=== PATIENT | female | born 1950 | race Caucasian/White ===

== ENCOUNTER → 2016-11-18 | Outpatient (CLI) | payer MEDICARE ==
[2016-11-18 17:24] LABS: Basophils % (A) 1 %; CH 30.7; CHCM 33.3; Eosinophils # (A) 0.1 k/uL (0-0.7); Eosinophils % (A) 1 %; HCT 41.8 % (34.0-46.0); HDW 2.53; HGB 14.2 gm/dL (11.4-16.0); Luc # (Auto) 0.21; Luc % (Auto) 3; Lymphocytes # (A) 1.9 k/uL (1.0-4.8); Lymphocytes % (A) 24 %; MCH 31.5 pg (25.0-35.0); MCV 92.7 fL (80.0-100.0); Monocytes # (A) 0.5 k/uL (0-1.0); Monocytes % (A) 6 %; Neutrophils # (A) 5.3 k/uL (1.3-7.7); Neutrophils % (A) 65 %; RBC 4.51 m/uL (3.80-5.40); RDW 13.6 % (11.5-15.5); WBC (Perox) 8.66
[2016-11-18 17:37] LABS: Appearance,Urine Clear (Clear); Bacteria,Urine Rare /hpf; Bilirubin,Urine Negative (Negative); Glucose,Urine (UA) Negative (Negative); Ketones,Urine Negative (Negative); Leukocyte Esterase,Urine Trace (Negative); Nitrite,Urine Negative (Negative); PH, Urine 6.5 (5.0-8.0); Particle Count 453; Protein,Urine Negative (Negative); RBC,Urine 1 /hpf (0-5); Specific Gravity,Urine 1.005 (1.001-1.035); Squamous Epithelial Cell,Urine 1 /hpf (0-4); UA Billing (MACRO vs. MICRO) MICRO; Urobilinogen,Urine <2.0 mg/dL (<2.0); WBC,Urine 2 /hpf (0-5)
[2016-11-18 18:00] LABS: Anion Gap 9 mmol/L; Blood Urea Nitrogen 15 mg/dL (7-17); Calcium 8.9 mg/dL (8.4-10.2); Carbon Dioxide 29 mmol/L (22-30); Chloride 102 mmol/L (98-107); Glucose 87 mg/dL (74-99); Iron 47 ug/dL (37-170); Magnesium 2.1 mg/dL (1.6-2.3); Non-African American GFR(MDRD) >60 (>60 ml/min/1.73 sqM); Phosphorous 4.1 mg/dL (2.5-4.5); Sodium 140 mmol/L (137-145); Uric Acid 2.9 mg/dL (3.7-7.4)
[2016-11-18 18:08] LABS: Total Iron Binding Capacity 270 ug/dL (265-497)
== END | disposition home or self-care (01) ==
LOC: LABWHC1 16:33
PROVIDERS: ATTEND Internal Medicine Nephrology
DX: E55.9 Vitamin D deficiency, unspecified (principal); M10.9 Gout, unspecified; N25.81 Secondary hyperparathyroidism of renal origin; D50.9 Iron deficiency anemia, unspecified; N18.2 Chronic kidney disease, stage 2 (mild)
CPT/HCPCS: 36415; 80048; 81001; 82306; 82728; 83540; 83550; 83735; 83970; 84100; 84550; 85025

== ENCOUNTER → 2017-03-17 | Outpatient (CLI) | payer MEDICARE ==
--- NOTE | 2017-03-18 11:15 | MM ---
Reason for exam: screening (asymptomatic). Last mammogram was performed 1 year and 1 month ago. History: Patient is postmenopausal and has history of other cancer at age 49. Took estrogen for 10 years 5 months. Took progesterone for 10 years 2 months. Physical Findings: A clinical breast exam by your physician is recommended on an annual basis and results should be correlated with mammographic findings. MG 3D Screening Mammo W/Cad Bilateral CC and MLO view(s) were taken. Prior study comparison: February 18, 2016, bilateral MG 3d screening mammo w/cad. February 11, 2015, bilateral MG screening mammo w CAD. There are scattered fibroglandular densities. There is no discrete abnormality. No significant changes when compared with prior studies. ASSESSMENT: Negative, BI-RAD 1 RECOMMENDATION: Routine screening mammogram of both breasts in 1 year.
== END | disposition home or self-care (01) ==
LOC: RADMAMWWP 11:39
PROVIDERS: ATTEND Obstetrics & Gynecology
DX: Z12.31 Encounter for screening mammogram for malignant neoplasm of breast (principal)
CPT/HCPCS: 77063; 77067

== ENCOUNTER → 2018-03-29 | Outpatient (CLI) | payer MEDICARE ==
[2018-03-29 09:32] VITALS: BP 115/82; PULSE 73; TEMP 97.8; BMI 28.1
--- NOTE | 2018-03-29 10:13 | P.HPOB ---
History of Present Illness H&P Date: 03/29/18 Chief Complaint: The patient is here for her routine gynecologic exam and mammogram. This is a 67-year-old G5 PIII with an LMP of 1999 who is status post vaginal hysterectomy for benign reasons. The patient is without gynecologic complaints. Review of Systems She is lost 14 pounds over the last year and she has done this through [employer]. She denies respiratory, cardiac and G.I. problems. She denies maltreatment or problems with falling. : she denies any significant problems with urinary leakage. Past Medical History Past Medical History: Cancer (Basal cell skin cancer and thyroid cancer), GERD/ Reflux, Hypertension, Thyroid Disorder (Hypothyroid) Additional Past Medical History / Comment(s): Meniere disease,IBS, seasonal allergies, osteopenia. 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 Vaginal hysterectomy was done for benign reasons. History of Any Multi-Drug Resistant Organisms: None Reported Past Surgical History: Hysterectomy (Vaginal hysterectomy with anterior repair 2011) Additional Past Surgical History / Comment(s): THYROIDECTOMY,BLADDER SUSPENSION , jaw surgery. Colonoscopy 2015(3rd-next 5-6yrs) Past Psychological History: No Psychological Hx Reported Smoking Status: Never smoker Past Alcohol Use History: Occasional (0 to 3 per week) Past Drug Use History: None Reported Additional History: She is been since 1971 and is retired. She is not sexually active. - Past Family History Sister(s) Family Medical History: Cancer (Melanoma) Father Family Medical History: Cancer (Prostate cancer), Diabetes Mellitus Mother Family Medical History: Coronary Artery Disease (CAD), Diabetes Mellitus Medications and Allergies Home Medications Medication Instructions Recorded Confirmed Type Biotin 10,000 mcg PO DAILY 03/29/18 03/29/18 History Calcium Carb/Vitamin D3/Vit K1 1 each PO DAILY 03/29/18 03/29/18 History [Citracal Soft Chew] Cholecalciferol [Vitamin D3] 1,000 tab PO DAILY 03/29/18 03/29/18 History Dicyclomine [Bentyl] 10 mg PO BID 03/29/18 03/29/18 History Ferrous Sulfate [Iron] 325 mg PO DAILY 03/29/18 03/29/18 History Fexofenadine HCl [Mala Allergy] 180 mg PO DAILY 03/29/18 03/29/18 History Fluticasone Nasal [place] [Flonase 50 mcg INHALATION DAILY 03/29/18 03/29/18 History Nasal [place]] L.acidoph,Paracasei, B.lactis 250 mg PO DAILY 03/29/18 03/29/18 History [Probiotic] Levothyroxine Sodium [Synthroid] 112 mcg PO DAILY 03/29/18 03/29/18 History Losartan [Cozaar] 25 mg PO DAILY 03/29/18 03/29/18 History Montelukast [Singulair] 10 mg PO DAILY 03/29/18 03/29/18 History Allergies Allergy/AdvReac Type Severity Reaction Status Date / Time No Known Allergies Allergy Unverified 03/29/18 09:25 Exam Vital Signs Temp Pulse BP 03/29/18 09:25 97.8 F 73 115/82 Intake and Output 03/28/18 03/29/18 03/29/18 22:59 06:59 14:59 Other: Weight 72.121 kg Height 5'3", weight 159 pounds, BMI 28.2. This is a well-developed well-nourished white female who is alert and oriented times 3 in no acute distress. HEENT: Within normal limits. NECK: Supple without mass or thyromegaly. CHEST AND LUNGS: Clear to auscultation. HEART: Regular rate and rhythm. BREASTS: Are without mass or discharge. AXILLARY EXAM: Negative for adenopathy. BACK: Negative for CVA tenderness. ABDOMEN: Soft, nontender, without palpable masses. PELVIC EXAM: External genitalia appears normal with mild to moderate atrophy. Vagina reveals moderate atrophy without lesions. The vagina is somewhat shortened and narrow which is consistent with her previous exam. The vaginal length is approximately 7-8 cm and the distal vagina accommodates one finger. There is no evidence of prolapse. Bimanual examination is negative for mass or tenderness. RECTAL EXAM: Rectovaginal exam is negative for mass or tenderness and is negative for occult blood. EXTREMITIES: Nontender. IMPRESSION: 1. 67-year-old menopausal female status post vaginal hysterectomy for benign reasons. 2. Moderate vaginal atrophy with vaginal shortening and narrowing of the vagina , otherwise unremarkable gynecologic exam. 3. History of osteopenia PLAN: 1. Pap smears have been discontinued. 2. Self breast awareness was discussed with the patient. 3. Screening mammogram will be done today. 4. Osteoporosis prevention was discussed. I have stressed the importance of adequate calcium, vitamin D and regular exercise. Recommended amounts of calcium and vitamin D were also discussed. Bone density testing will be done through Dr. Sahu as she has done in the past. 5. She did receive for flu shot this past fall. 6. She will return in one year.
--- NOTE | 2018-04-01 12:31 | MM ---
Reason for exam: screening (asymptomatic). Last mammogram was performed 1 year ago. History: Patient is postmenopausal and has history of other cancer at age 49. (thyroid and skin) Took estrogen for 10 years 5 months. Took progesterone for 10 years 2 months. MG 3D Screening Mammo W/Cad Bilateral CC and MLO view(s) were taken. Prior study comparison: March 17, 2017, bilateral MG 3d screening mammo w/cad. February 18, 2016, bilateral MG 3d screening mammo w/cad. There are scattered fibroglandular densities. Chronic nodularity in the right breast. Medial dermal calcification are unchanged. No significant changes when compared with prior studies. ASSESSMENT: Negative, BI-RAD 1 RECOMMENDATION: Routine screening mammogram of both breasts in 1 year.
== END ==
LOC: WWCWWP 08:52
PROVIDERS: ATTEND Obstetrics & Gynecology
DX: Z12.31 Encounter for screening mammogram for malignant neoplasm of breast (principal)
CPT/HCPCS: 77063; 77067

== ENCOUNTER → 2019-01-19 | Outpatient (CLI) | payer MEDICARE ==
--- NOTE | 2019-01-19 09:26 | US ---
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 abn labs, no symptoms EXAM MEASUREMENTS: Right Kidney: 8.9 x 4.4 x 4.1 cm Left Kidney: 9.4 x 4.6 x 5.0 cm Right Kidney: No hydronephrosis or masses seen Left Kidney: No hydronephrosis or masses seen Bladder: wnl Bilateral Jets seen: No There is no evidence for hydronephrosis at this point in time. No nephrolithiasis is seen. No mary s are identified. The urinary bladder is anechoic. Bilateral ureteral jets are seen. IMPRESSION: No hydronephrosis or nephrolithiasis. No current sonographic sequela of chronic medical r enal disease.
== END ==
LOC: RADUSWWP 08:22
PROVIDERS: ATTEND Internal Medicine Nephrology
DX: N18.2 Chronic kidney disease, stage 2 (mild) (principal)
CPT/HCPCS: 76770

== ENCOUNTER → 2019-05-16 | Outpatient (CLI) | payer MEDICARE ==
[2019-05-16 11:32] VITALS: BP 144/80; PULSE 74; RESP 18; TEMP 97.9
--- NOTE | 2019-05-16 12:07 | P.HPOB ---
History of Present Illness H&P Date: 05/16/19 Chief Complaint: The patient is here for her routine gynecologic exam and ma mmogram. This is a 68-year-old with an LMP of 1999. She is status post vaginal hysterectomy for benign reasons and is without gynecologic complaints. Review of Systems She is gained about 6 pounds over the last year. She denies respiratory or cardiac problems. GI: Occasional IBS symptoms. She denies maltreatment or problems with falling. : she denies any significant problems with urinary leakage. Past Medical History Past Medical History: Cancer, GERD/Reflux, Hypertension, Thyroid Disorder Additional Past Medical History / Comment(s): Basal cell skin cancer and thyroid cancer. Meniere disease,IBS, seasonal allergies, osteopenia. 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 Vaginal hysterectomy was done for benign reasons. History of Any Multi-Drug Resistant Organisms: None Reported Past Surgical History: Hysterectomy Additional Past Surgical History / Comment(s): THYROIDECTOMY, vaginal hysterectomy with anterior repair 2011, jaw surgery. Colonoscopy 2015(3rd-next 5-6yrs) Past Psychological History: No Psychological Hx Reported Smoking Status: Never smoker Past Alcohol Use History: Occasional (0-3 per week) Past Drug Use History: None Reported Additional History: She has been masses 1971 and is retired. She is not sexually active. - Past Family History Sister(s) Family Medical History: Cancer Additional Family Medical History / Comment(s): Melanoma skin cancer. Father Family Medical History: Cancer, Diabetes Mellitus Additional Family Medical History / Comment(s): Prostate cancer. Mother Family Medical History: Coronary Artery Disease (CAD), Diabetes Mellitus Medications and Allergies Home Medications Medication Instructions Recorded Confirmed Type Biotin 10,000 mcg PO DAILY 03/29/18 05/16/19 History Calcium Carb/Vitamin D3/Vit K1 1 each PO DAILY 03/29/18 05/16/19 History [Citracal Soft Chew] Cholecalciferol [Vitamin D3] 1,000 tab PO DAILY 03/29/18 05/16/19 History Dicyclomine [Bentyl] 10 mg PO BID 03/29/18 05/16/19 History Ferrous Sulfate [Iron] 325 mg PO DAILY 03/29/18 05/16/19 History Fexofenadine HCl [Mala Allergy] 180 mg PO DAILY 03/29/18 05/16/19 History Fluticasone Nasal [place] [Flonase 50 mcg INHALATION DAILY 03/29/18 05/16/19 History Nasal [place]] L.acidoph,Paracasei, B.lactis 250 mg PO DAILY 03/29/18 05/16/19 History [Probiotic] Levothyroxine Sodium [Synthroid] 112 mcg PO DAILY 03/29/18 05/16/19 History Losartan [Cozaar] 25 mg PO DAILY 03/29/18 05/16/19 History Montelukast [Singulair] 10 mg PO DAILY 03/29/18 05/16/19 History Elderberry Fruit and Flower [Black 1 each PO DAILY 05/16/19 05/16/19 History Elderberry 575 mg Cap] Methylcellulose (with Sugar) 2 gm PO DIRECTED 05/16/19 05/16/19 History [Citrucel Powder] Timolol [Betimol 0.5% Ophth Soln] 1 drop BOTH EYES DAILY 05/16/19 05/16/19 History Allergies Allergy/AdvReac Type Severity Reaction Status Date / Time No Known Allergies Allergy Unverified 05/16/19 11:36 Exam Vital Signs Temp Pulse Resp BP 05/16/19 11:26 97.9 F 74 18 144/80 Intake and Output 05/15/19 05/16/19 05/16/19 22:59 06:59 14:59 Other: Weight 74.843 kg Height 5 feet 3 inches, weight 165 pounds, BMI 29.2. This is a well-developed well-nourished white female who is alert and oriented times 3 in no acute distress. HEENT: Within normal limits. NECK: Supple without mass or thyromegaly. CHEST AND LUNGS: Clear to auscultation. HEART: Regular rate and rhythm. BREASTS: Are without mass or discharge. AXILLARY EXAM: Negative for adenopathy. BACK: Negative for CVA tenderness. ABDOMEN: Soft, nontender, without palpable masses. She has multiple benign- appearing moles. There is a skin lesion in the right upper quadrant of the abdomen measuring 12 x 12 mm with an irregular border and is minimally raised. PELVIC EXAM: External genitalia appears normal with mild to moderate atrophy. Vagina has moderate atrophy without lesions. The vagina is somewhat shortened and narrow consistent with her previous examination the vaginal length is approximately 8 cm and the distal vagina accommodates one finger. There is no evidence of prolapse. Bimanual examination is negative for mass or tenderness. RECTAL EXAM: Rectovaginal exam is negative for mass or tenderness and is negative for occult blood. EXTREMITIES: Nontender. IMPRESSION: 1. 68-year-old menopausal female status post vaginal hysterectomy for benign reasons. 2. moderate vaginal atrophy with vaginal shortening and narrowing of the vagina secondary to her previous vaginal surgery and menopausal atrophy. 3 history of osteopenia followed by her rebeamer. 4. Suspicious right abdominal skin lesion. Plan: 1. Pap smears have been discontinued. 2.Self breast awareness was discussed with the patient. 3. Screening mammogram will be done today. 4. Osteoporosis prevention was discussed. I have stressed the importance of adequate calcium, vitamin D and regular exercise. Recommended amounts of calcium and vitamin D were also discussed. 5. She did get a flu shot this past fall. 6. I have recommended that she see her database coordinator regarding the abdominal skin lesion. She states she has an upcoming appointment with her database coordinator, Dr. Velasquez, and we'll have him inspect this skin lesion and do a whole body skin examination. 7. The patient was advised to return in 1-2 years for her well woman examination.
--- NOTE | 2019-05-18 13:27 | MM ---
Reason for exam: screening (asymptomatic). Last mammogram was performed 1 year and 2 months ago. History: Patient is postmenopausal and has history of other cancer at age 49. Took estrogen for 10 years 5 months. Took progesterone for 10 years 2 months. Physical Findings: A clinical breast exam by your physician is recommended on an annual basis and results should be correlated with mammographic findings. MG 3D Screening Mammo W/Cad Bilateral CC and MLO view(s) were taken. Prior study comparison: March 29, 2018, bilateral MG 3d screening mammo w/cad. March 17, 2017, bilateral MG 3d screening mammo w/cad. There are scattered fibroglandular densities. There is chronic nodularity in the right breast. Stable medial dermal calcifications. No significant changes when compared with prior studies. ASSESSMENT: Negative, BI-RAD 1 RECOMMENDATION: Routine screening mammogram of both breasts in 1 year.
== END | disposition home or self-care (01) ==
LOC: WWCWWP 11:18
PROVIDERS: ATTEND Obstetrics & Gynecology
DX: Z12.31 Encounter for screening mammogram for malignant neoplasm of breast (principal)
CPT/HCPCS: 77063; 77067

== ENCOUNTER → 2020-07-08 | Outpatient (CLI) | payer MEDICARE ==
[2020-07-08 12:59] VITALS: BP 150/95; PULSE 77; RESP 18; TEMP 98.3
--- NOTE | 2020-07-08 13:26 | P.HPOB ---
History of Present Illness H&P Date: 07/08/20 Chief Complaint: The patient is here for her routine gynecologic exam and ma mmogram. This is a 69-year-old with an LMP of 1999. The patient is without gynecologic complaints. She is status post vaginal hysterectomy for benign reasons. Review of Systems She is getting about 11 pounds over the past year. She denies respiratory or cardiac problems. GI: Occasional IBS symptoms especially with increased stress. Past Medical History Past Medical History: Cancer, GERD/Reflux, Hypertension, Thyroid Disorder Additional Past Medical History / Comment(s): Basal cell skin cancer and thyroid cancer. Meniere disease,IBS, seasonal allergies, osteopenia. 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 Vaginal hysterectomy was done for benign reasons. History of Any Multi-Drug Resistant Organisms: None Reported Past Surgical History: Hysterectomy Additional Past Surgical History / Comment(s): THYROIDECTOMY, vaginal hysterectomy with anterior repair 2011, jaw surgery. Colonoscopy 2015(3rd-next 5-6yrs) Past Psychological History: No Psychological Hx Reported Smoking Status: Never smoker Past Alcohol Use History: Occasional (0-3 drinks per week.) Past Drug Use History: None Reported Additional History: She has been since 1971 and is retired. She is not sexually active. - Past Family History Sister(s) Family Medical History: Cancer Additional Family Medical History / Comment(s): Melanoma skin cancer. Father Family Medical History: Cancer, Diabetes Mellitus Additional Family Medical History / Comment(s): Prostate cancer. Mother Family Medical History: Coronary Artery Disease (CAD), Diabetes Mellitus Medications and Allergies Home Medications Medication Instructions Recorded Confirmed Type Biotin 10,000 mcg PO DAILY 03/29/18 07/08/20 History Calcium Carb/Vitamin D3/Vit K1 1 each PO DAILY 03/29/18 07/08/20 History [Citracal Soft Chew] Cholecalciferol [Vitamin D3] 1,000 tab PO DAILY 03/29/18 07/08/20 History Dicyclomine [Bentyl] 10 mg PO BID 03/29/18 07/08/20 History Ferrous Sulfate [Iron] 325 mg PO DAILY 03/29/18 07/08/20 History Fexofenadine HCl [Mala Allergy] 180 mg PO DAILY 03/29/18 07/08/20 History Fluticasone Nasal [place] [Flonase 50 mcg INHALATION DAILY 03/29/18 07/08/20 History Nasal [place]] Levothyroxine Sodium [Synthroid] 112 mcg PO DAILY 03/29/18 07/08/20 History Losartan [Cozaar] 50 mg PO DAILY 03/29/18 07/08/20 History Elderberry Fruit and Flower [Black 1 each PO DAILY 05/16/19 07/08/20 History Elderberry 575 mg Cap] Methylcellulose (with Sugar) 2 gm PO DIRECTED 05/16/19 07/08/20 History [Citrucel Powder] Timolol [Betimol 0.5% Ophth Soln] 1 drop BOTH EYES DAILY 05/16/19 07/08/20 History Allergies Allergy/AdvReac Type Severity Reaction Status Date / Time No Known Allergies Allergy Unverified 07/08/20 12:50 Exam Vital Signs Temp Pulse Resp BP Pulse Ox 07/08/20 12:54 98.3 F 77 18 150/95 97 Intake and Output 07/07/20 07/08/20 07/08/20 22:59 06:59 14:59 Other: Weight 79.832 kg Height 5 feet 3-1/2 inches, weight 176 pounds, BMI 30.7. This is a well-developed well-nourished white female who is alert and oriented times 3 in no acute distress. HEENT: Within normal limits. NECK: Supple without mass or thyromegaly. CHEST AND LUNGS: Clear to auscultation. HEART: Regular rate and rhythm. BREASTS: Are without mass or discharge. AXILLARY EXAM: Negative for adenopathy. BACK: Negative for CVA tenderness. ABDOMEN: Soft, nontender, without palpable masses. PELVIC EXAM: External genitalia appears normal with mild to moderate atrophy. Vagina appears normal with moderate atrophy. The vagina is somewhat narrowed and shortened and this is consistent with her previous examination. There is no evidence of prolapse. Bimanual examination is negative for mass or tenderness. RECTAL EXAM: Rectovaginal exam is negative for mass or tenderness and is negative for occult blood. EXTREMITIES: Nontender. IMPRESSION: 1. 69-year-old menopausal female with normal gynecologic exam. 2. History of osteopenia managed by her academic advising director. PLAN: 1. Pap smears have been discontinued. 2. Self breast awareness was discussed with the patient. 3. Screening mammogram will be done today. 4. Osteoporosis prevention was discussed. I have stressed the importance of adequate calcium, vitamin D and regular exercise. Recommended amounts of calcium and vitamin D were also discussed. Bone density testing will be done through her academic advising director as she has done in the past. 5. She has multiple moles and will continue to see her social services technician on a regular basis for skin checks. 6. She is coming due for a colonoscopy soon and will see her PCP about this. 7. I have recommended home blood pressure checks on a regular basis and she is to follow-up with Dr. Arceo for blood pressure elevations. 8. She did complete her Covid vaccination series. 9. The patient was advised to return in 1-2 years for her well woman examination.
--- NOTE | 2020-07-09 09:17 | MM ---
Reason for exam: screening (asymptomatic). Last mammogram was performed 1 year and 2 months ago. History: Patient is postmenopausal and has history of other cancer at age 49. Took estrogen for 10 years 5 months. Took progesterone for 10 years 2 months. Physical Findings: A clinical breast exam by your physician is recommended on an annual basis and results should be correlated with mammographic findings. MG 3D Screening Mammo W/Cad Bilateral CC and MLO view(s) were taken. Prior study comparison: May 16, 2019, bilateral MG 3d screening mammo w/cad. March 29, 2018, bilateral MG 3d screening mammo w/cad. There are scattered fibroglandular densities. There is no discrete abnormality. No significant changes when compared with prior studies. ASSESSMENT: Negative, BI-RAD 1 RECOMMENDATION: Routine screening mammogram of both breasts in 1 year.
== END ==
LOC: WWCWWP 12:35
PROVIDERS: ATTEND Obstetrics & Gynecology
DX: Z12.31 Encounter for screening mammogram for malignant neoplasm of breast (principal); Z01.419 Encounter for gynecological examination (general) (routine) without abnormal findings; Z87.39 Personal history of other diseases of the musculoskeletal system and connective tissue; I10 Essential (primary) hypertension
CPT/HCPCS: 77063; 77067

== ENCOUNTER → 2021-08-11 | Outpatient (CLI) | payer MEDICARE ==
[2021-08-11 11:20] VITALS: BP 144/83; PULSE 64; RESP 17; TEMP 98.1
--- NOTE | 2021-08-11 12:26 | P.HPOB ---
History of Present Illness H&P Date: 08/11/21 Chief Complaint: The patient is here for her routine gynecologic exam and ma mmogram. This is a 70-year-old with an LMP of 1999. The patient is status post vaginal hysterectomy with anterior repair for benign reasons. She is without gynecologic complaints. Review of Systems The patient has lost 20 pounds over the last year. This is after gaining about 17 pounds over the previous 2 years. She denies respiratory, cardiac, or G.I. problems. Past Medical History Past Medical History: Cancer, GERD/Reflux, Hypertension, Thyroid Disorder Additional Past Medical History / Comment(s): Basal cell skin cancer and thyroid cancer. Meniere disease,IBS, seasonal allergies, osteopenia. Back problems. 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 Vaginal hysterectomy was done for benign reasons. History of Any Multi-Drug Resistant Organisms: None Reported Past Surgical History: Hysterectomy Additional Past Surgical History / Comment(s): THYROIDECTOMY, vaginal hysterectomy with anterior repair 2011, jaw surgery. Eye surgery to prevent glaucoma. Colonoscopy 2021(next after 10yrs) Past Psychological History: No Psychological Hx Reported Smoking Status: Never smoker Past Alcohol Use History: Occasional (0-3 per week) Past Drug Use History: None Reported Additional History: She has been since 1971 and is not sexually active. She is retired. - Past Family History Sister(s) Family Medical History: Cancer Additional Family Medical History / Comment(s): Melanoma skin cancer. Father Family Medical History: Cancer, Diabetes Mellitus Additional Family Medical History / Comment(s): Prostate cancer. Mother Family Medical History: Coronary Artery Disease (CAD), Diabetes Mellitus Medications and Allergies Home Medications Medication Instructions Recorded Confirmed Type Biotin 10,000 mcg PO DAILY 03/29/18 08/11/21 History Calcium Carb/Vitamin D3/Vit K1 1 each PO DAILY 03/29/18 08/11/21 History [Citracal Soft Chew] Cholecalciferol [Vitamin D3] 1,000 tab PO DAILY 03/29/18 08/11/21 History Dicyclomine [Bentyl] 10 mg PO BID 03/29/18 08/11/21 History Ferrous Sulfate [Iron] 325 mg PO DAILY 03/29/18 08/11/21 History Fexofenadine HCl [Mala Allergy] 180 mg PO DAILY 03/29/18 08/11/21 History Levothyroxine Sodium [Synthroid] 112 mcg PO DAILY 03/29/18 08/11/21 History Losartan [Cozaar] 50 mg PO DAILY 03/29/18 08/11/21 History Methylcellulose (with Sugar) 2 gm PO DIRECTED 05/16/19 08/11/21 History [Citrucel Powder] Bimatoprost [Lumigan 0.01% Ophth 1 drop BOTH EYES DAILY 08/11/21 08/11/21 History Soln] Allergies Allergy/AdvReac Type Severity Reaction Status Date / Time No Known Allergies Allergy Unverified 08/11/21 11:12 Exam Vital Signs Temp Pulse Resp BP Pulse Ox 08/11/21 11:17 98.1 F 64 17 144/83 97 Intake and Output 08/10/21 08/11/21 08/11/21 22:59 06:59 14:59 Other: Weight 70.76 kg Height 5 feet 3 inches, weight 156 pounds, BMI 27.6. This is a well-developed well-nourished white female who is alert and oriented times 3 in no acute distress. HEENT: Within normal limits. NECK: Supple without mass or thyromegaly. CHEST AND LUNGS: Clear to auscultation. HEART: Regular rate and rhythm. BREASTS: Are without mass or discharge. AXILLARY EXAM: Negative for adenopathy. BACK: Negative for CVA tenderness. ABDOMEN: Soft, nontender, without palpable masses. PELVIC EXAM: External genitalia appears normal with mild to moderate atrophy. Vagina appears normal with mild to moderate atrophy. The vagina is somewhat shortened and narrowed consistent with her previous examination. There is no evidence of prolapse. Bimanual examination is negative for mass or tenderness. RECTAL EXAM: Rectovaginal exam is negative for mass or tenderness and is negative for occult blood. EXTREMITIES: Nontender. IMPRESSION: 1. 70-year-old menopausal female status post vaginal hysterectomy for benign reasons with normal gynecologic exam. 2. History of osteopenia which has been managed by her senior estimator. PLAN: 1. Pap smears have been discontinued. 2. Self breast awareness was discussed with the patient. We have also discussed symptoms associated with inflammatory breast cancer. 3. Screening mammogram was done today. 4. Osteoporosis prevention was discussed. I have stressed the importance of adequate calcium, vitamin D and regular exercise. Recommended amounts of calcium and vitamin D were also discussed. I have recommended bone density test later in the summer since her last one was done in September 2019. The order slip was given to the patient for this. 5. She will continue to see her seed analyst for a regular yearly skin check because of the multiple moles that she has. 6. She was advised to return in one year for her annual well woman exam.
--- NOTE | 2021-08-12 17:42 | MM ---
Reason for Exam: Screening (asymptomatic). Last mammogram was performed 1 year(s) and 1 month(s) ago. Patient History: Menarche at age 15. First Full-Term at age 23. Hysterectomy at age 60. Postmenopausal. Other cancer, age 49. Estrogen for 10 years, 5 months. Progesterone for 10 years, 2 months. Risk Values: Betty 5 year model risk: 1.4%. NCI Lifetime model risk: 4.1%. Prior Study Comparison: 03/29/2018 Bilateral Screening Mammogram, [facility]. 05/16/2019 Bilateral Screening Mammogram, [facility]. 07/08/2020 Bilateral Screening Mammogram, [facility]. Tissue Density: There are scattered fibroglandular densities. Findings: Analyzed By CAD. There is an area of increased density within the mid posterior left breast on the mediolateral oblique view. This appears to be in the mid to lateral portion on tomographic images. This appears to be an interval change additional workup of this area is recommended. Within the remaining portions of the bilateral breasts no suspicious spiculated or lobular masses, clusters of microcalcifications or architectural distortion is evident. There is stable focal asymmetry in the outer 9:00 posterior right breast. No significant interval changes are evident. Overall Assessment: Incomplete: need additional imaging evaluation, BI-RAD 0 Management: Diagnostic Mammogram of the left breast. A clinical breast exam by your physician is recommended on an annual basis and results should be correlated with mammographic findings. Electronically signed and approved by: Allen Lpoez D.O. Radiologis
== END | disposition home or self-care (01) ==
LOC: RADMAMWWP 10:41
PROVIDERS: ATTEND Obstetrics & Gynecology
DX: Z12.31 Encounter for screening mammogram for malignant neoplasm of breast (principal); Z78.0 Asymptomatic menopausal state
CPT/HCPCS: 77063; 77067

== ENCOUNTER → 2021-08-14 | Outpatient (CLI) | payer MEDICARE ==
--- NOTE | 2021-08-14 09:08 | MM ---
Reason for Exam: Additional evaluation requested from abnormal screening. Last screening mammogram was performed less than 1 month ago. Patient History: Menarche at age 15. First Full-Term at age 23. Hysterectomy at age 60. Postmenopausal. Other cancer, age 49. Estrogen for 10 years, 5 months. Progesterone for 10 years, 2 months. Risk Values: Betty 5 year model risk: 1.4%. NCI Lifetime model risk: 4.1%. Prior Study Comparison: 05/16/2019 Bilateral Screening Mammogram, [facility]. 07/08/2020 Bilateral Screening Mammogram, [facility]. 08/11/2021 Bilateral MG 3D screening mammo w/cad, [facility]. Tissue Density: Left: There are scattered fibroglandular densities. Findings: Analyzed By CAD. The subtle distortion within the left medial lateral view appears to largely resolved on compression. No discrete abnormalities evident on the medial lateral view tomographic images. Overall Assessment: Probably benign, BI-RAD 3 Management: Diagnostic Mammogram of the left breast in 6 months. A clinical breast exam by your physician is recommended on an annual basis and results should be correlated with mammographic findings. This exam should not preclude additional follow-up of suspicious palpable abnormalities. Results were given to the patient verbally at the time of exam. Electronically signed and approved by: Allen Lopez D.O. Radiologis
--- NOTE | 2021-08-14 11:09 | P.PN ---
Progress Note - Text Progress Note Date: 08/14/21 Screening mammogram done on 08/14/2021 was probably benign. A diagnostic mammogram of the left breast in 6 months was recommended. The results were given to the patient verbally by the radiologist Department at the time of the exam. The order slip for the mammogram in 6 months will be mailed to the patient.
== END | disposition home or self-care (01) ==
LOC: RADMAMWWP 08:14
PROVIDERS: ATTEND Obstetrics & Gynecology
DX: R92.8 Other abnormal and inconclusive findings on diagnostic imaging of breast (principal)
CPT/HCPCS: 77065; G0279; 77061

== ENCOUNTER → 2021-10-12 | Outpatient (CLI) | payer MEDICARE ==
--- NOTE | 2021-10-12 18:28 | BD ---
EXAMINATION TYPE: Axial Bone Density DATE OF EXAM: 10/12/2021 COMPARISON: 12.26.2013 CLINICAL HISTORY: 70 years year old Female. ICD-10 CODE: Z78.0 ASYMPTOMATIC MENOPAUSAL STATE Height: 62.3 Weight: 156 FRAX RISK QUESTIONS: Family History (Parent hip fracture): NO FX RISK FACTORS HISTORY OF: Family History of Osteoporosis: YES, SISTER Postmenopausal woman: YES, AT AGE 48 Take estrogen and/or progesterone medications: YES, FOR ABOUT 10 YRS, NONE NOW Hyperparathyroidism: NO Adrenal Insufficiency: NO MEDICATIONS: Thyroid Medications: YES, SYNTHROID, FOR ABOUT 22 YRS Additional Medications: BP MEDS, XANAX PRN, YES, ORAL RADIATION FOR THYROID CA, REFLUX MEDS, VIT D AN D CALCIUM, Additional History: HYPERTENSION, THYROID CA, ANXIETY, REFLUX EXAM MEASUREMENTS: Bone mineral densitometry was performed using the Selatra System. Bone mineral density as measured about the Lumbar spine is: ----- L1-L4(G/cm2): 1.013 T Score Values are as follows: ----- L1: -1.8 ----- L2: -1.6 ----- L3: -1.3 ----- L4: -1.1 ----- L1-L4: -1.4 Bone mineral density has: Decreased -4.3% since study of: 12.26.2013 Bone mineral density about the R hip (g/cm2): 0.913 Bone mineral density about the L hip (g/cm2): 0.894 T Score values are as follows: -----R Neck: -1.3 -----L Neck: -1.5 -----R Total: -0.8 -----L Total: -0.9 Bone mineral density has: Decreased -3.3% since study of: 12.26.2013 FRAX%s: The graph provided illustrates a 15.8% chance for a major osteoporotic fx and a 2.8% chance f or the hips probability for fx in 10 years time. IMPRESSION: Osteopenia (T Score between -2.5 and -1). There is slightly increased risk of fracture and the patient may be considered for treatment. Re-Screen 2-5 years. NOTE: T-SCORE=SD OF THE YOUNG ADULT MEAN.
== END | disposition home or self-care (01) ==
LOC: RADBDWWP 11:09
PROVIDERS: ATTEND Family Medicine
DX: M85.89 Other specified disorders of bone density and structure, multiple sites (principal); Z78.0 Asymptomatic menopausal state
CPT/HCPCS: 77080

== ENCOUNTER → 2021-10-14 | Outpatient (CLI) | payer MEDICARE ==
--- NOTE | 2021-10-15 07:43 | US ---
EXAMINATION TYPE: US kidneys/renal and bladder DATE OF EXAM: 10/14/2021 COMPARISON: NONE CLINICAL HISTORY: 70-year-old female N18.1 Chronic kidney disease, stage 1. CKD. TECHNIQUE: Multiple sonographic images of the kidneys and bladder are obtained. FINDINGS: EXAM MEASUREMENTS: Right Kidney: 10.7 x 5.4 x 4.1 cm Left Kidney: 10.5 x 4.7 x 4.9 cm Right Kidney: Small 1.2 cm cyst at the midpole. No hydronephrosis. Left Kidney: Low Pressure Boiler Tender notes: Collecting system appears distended. Appearance of mild hydronephrosi s. Echogenic focus at the mid pole measures 9 mm. Bladder: Appears anechoic. Bilateral Jets seen: Yes Incidental hyperechoic liver parenchyma suggesting fatty infiltration. IMPRESSION: 1. Mild left-sided pelvicaliectasis may be transient or could reflect early hydronephrosis. Correlate for any left-sided renal colic symptoms and the possibility of early obstructive uropathy. 2. A 9 mm nonobstructive left midpole renal calculus.
== END | disposition home or self-care (01) ==
LOC: RADUSWWP 15:52
PROVIDERS: ATTEND Internal Medicine Nephrology
DX: N18.1 Chronic kidney disease, stage 1 (principal); N20.0 Calculus of kidney
CPT/HCPCS: 76770

== ENCOUNTER → 2021-11-19 | Outpatient (CLI) | payer MEDICARE ==
--- NOTE | 2021-11-20 12:52 | CT ---
EXAMINATION TYPE: CT abdomen pelvis wo con DATE OF EXAM: 11/19/2021 COMPARISON: None HISTORY: N20.0 CALCULUS OF KIDNEY Examination of the solid and hollow viscera is limited given the lack of contrast. FINDINGS: LUNG BASES: No evidence for nodule. No evidence for infiltrate. LIVER/GB: The gallbladder is unremarkable. No space-occupying hepatic lesion. PANCREAS: No pancreatic mass identified. No inflammatory process seen. SPLEEN: No evidence for splenomegaly. No intrasplenic lesions seen. ADRENALS: No adrenal nodules identified. No evidence for thickening. KIDNEYS: No evidence for renal mass. No nephrolithiasis. No hydronephrosis. BOWEL: Appendix has a normal appearance. No evidence of bowel obstruction. No inflammatory process. Lymph nodes: No evidence for adenopathy greater than 1 cm. Abdominal aorta: Atheromatous changes seen. No evidence for aneurysm. Genital organs: No significant abnormality. Other: No significant abnormality. IMPRESSION: NO SIGNIFICANT ABNORMALITY APPRECIATED.
== END | disposition home or self-care (01) ==
LOC: RADCTMAIN 10:56
PROVIDERS: ATTEND Urology
DX: N20.0 Calculus of kidney (principal)
CPT/HCPCS: 74176

== ENCOUNTER → 2022-02-16 | Outpatient (CLI) | payer MEDICARE ==
--- NOTE | 2022-02-16 11:31 | MM ---
Reason for Exam: Follow-up at short interval from prior study. Last screening mammogram was performed 7 month(s) ago. Patient History: Menarche at age 15. First Full-Term at age 23. Hysterectomy at age 60. Postmenopausal. Other cancer, age 49. Estrogen for 10 years, 5 months. Progesterone for 10 years, 2 months. Risk Values: Betty 5 year model risk: 1.4%. NCI Lifetime model risk: 4.0%. Prior Study Comparison: 07/08/2020 Bilateral Screening Mammogram, [facility]. 08/11/2021 Bilateral MG 3D screening mammo w/cad, [facility]. 08/14/2021 Left MG 3D work up w/cad , [facility]. Tissue Density: Left: There are scattered fibroglandular densities. Findings: Analyzed By CAD. Previously seen distortion within the left mediolateral view of his not demonstrated on today's exam. No new suspicious abnormalities or worrisome cluster magnifications. Previously seen distortion within the left mediolateral view of his not demonstrated on today's exam. No new suspicious abnormalities or worrisome cluster of microcalcifications. Overall Assessment: Benign, BI-RAD 2 Management: Screening Mammogram of both breasts in 6 months. A clinical breast exam by your physician is recommended on an annual basis and results should be correlated with mammographic findings. This exam should not preclude additional follow-up of suspicious palpable abnormalities. Results were given to the patient verbally at the time of exam. Electronically signed and approved by: Kavin Espinoza D.O.
== END | disposition home or self-care (01) ==
LOC: RADMAMWWP 10:51
PROVIDERS: ATTEND Obstetrics & Gynecology
DX: R92.8 Other abnormal and inconclusive findings on diagnostic imaging of breast (principal); Z78.0 Asymptomatic menopausal state
CPT/HCPCS: 77065; G0279; 77061

== ENCOUNTER → 2022-08-17 | Outpatient (CLI) | payer MEDICARE ==
[2022-08-17 15:15] VITALS: BP 123/82; PULSE 79; RESP 16; TEMP 98.4
--- NOTE | 2022-08-17 15:55 | P.HPOB ---
History of Present Illness H&P Date: 08/17/22 Chief Complaint: The patient is here for her routine gynecologic exam and ma mmogram. This is a 71-year-old with an LMP of 1999. The patient is status post vaginal hysterectomy with anterior repair for benign reasons. She is without gynecologic complaints. Review of Systems She is gained about 8 pounds over the past year. She denies respiratory or cardiac problems. GI: Occasional gastric reflux symptoms. Past Medical History Past Medical History: Cancer, GERD/Reflux, Hypertension, Thyroid Disorder Additional Past Medical History / Comment(s): Basal cell skin cancer and thyroid cancer. Meniere disease,IBS, seasonal allergies, osteopenia. Back problems. 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 Vaginal hysterectomy was done for benign reasons. History of Any Multi-Drug Resistant Organisms: None Reported Past Surgical History: Hysterectomy Additional Past Surgical History / Comment(s): THYROIDECTOMY, vaginal hysterectomy with anterior repair 2011, jaw surgery. Eye surgery to prevent glaucoma. Colonoscopy 2021(next after 10yrs) Past Psychological History: No Psychological Hx Reported Smoking Status: Never smoker Past Alcohol Use History: Occasional (0-3 per week. Occasionally more, if on vacation.) Past Drug Use History: None Reported Additional History: She has been since 1971 and is not sexually active. She has been retired since 2015. - Past Family History Sister(s) Family Medical History: Cancer Additional Family Medical History / Comment(s): Melanoma skin cancer. Father Family Medical History: Cancer, Diabetes Mellitus Additional Family Medical History / Comment(s): Prostate cancer. Mother Family Medical History: Coronary Artery Disease (CAD), Diabetes Mellitus Medications and Allergies Home Medications Medication Instructions Recorded Confirmed Type Biotin 10,000 mcg PO DAILY 03/29/18 08/17/22 History Calcium Carb/Vitamin D3/Vit K1 1 each PO DAILY 03/29/18 08/17/22 History [Citracal Soft Chew] Cholecalciferol [Vitamin D3] 1,000 tab PO DAILY 03/29/18 08/17/22 History Dicyclomine [Bentyl] 10 mg PO BID 03/29/18 08/17/22 History Fexofenadine HCl [Mala Allergy] 180 mg PO DAILY 03/29/18 08/17/22 History Levothyroxine Sodium [Synthroid] 112 mcg PO DAILY 03/29/18 08/17/22 History Losartan [Cozaar] 50 mg PO DAILY 03/29/18 08/17/22 History Bimatoprost [Lumigan 0.01% Ophth 1 drop BOTH EYES DAILY 08/11/21 08/17/22 History Soln] Allergies Allergy/AdvReac Type Severity Reaction Status Date / Time No Known Allergies Allergy Unverified 08/17/22 15:11 Exam Vital Signs Temp Pulse Resp BP Pulse Ox 08/17/22 15:13 98.4 F 79 16 123/82 97 Intake and Output 08/17/22 08/17/22 08/17/22 06:59 14:59 22:59 Other: Weight 74.389 kg Height 5 feet 3 inches, weight 164 pounds, BMI 29.1. This is a well-developed well-nourished white female who is alert and oriented times 3 in no acute distress. HEENT: Within normal limits. NECK: Supple without mass or thyromegaly. CHEST AND LUNGS: Clear to auscultation. HEART: Regular rate and rhythm. BREASTS: Are without mass or discharge. AXILLARY EXAM: Negative for adenopathy. BACK: Negative for CVA tenderness. ABDOMEN: Soft, nontender, without palpable masses. PELVIC EXAM: External genitalia appears normal with mild to moderate atrophy. Vagina appears normal with moderate atrophy. The vagina is somewhat shortened and narrowed especially in the inner half of the vagina. Only a single digit can be entered in the inner part of the vagina. There is no evidence of prolapse. Bimanual examination is negative for mass or tenderness. RECTAL EXAM: Rectovaginal exam is negative for mass or tenderness and is negative for occult blood. EXTREMITIES: Nontender. IMPRESSION: 1. 71-year-old menopausal female status post vaginal hysterectomy for benign reasons, with normal gynecologic exam. 2. History of osteopenia. Her most recent bone density test was done on 10/12/2021. PLAN: 1. Pap smears have been discontinued. 2. Self breast awareness was discussed with the patient. We have also discussed symptoms associated with inflammatory breast cancer. 3. Screening mammogram will be done today. 4. Osteoporosis prevention was discussed. I have stressed the importance of adequate calcium, vitamin D and regular exercise. Recommended amounts of calcium and vitamin D were also discussed. I recommended repeating the bone density test in approximately 1-2 years. 5. She will continue to see her manufacturing engineer chief for regular yearly skin checks because of her history of skin cancer and multiple moles. 6. She was advised to return in one year for her annual well woman exam.
--- NOTE | 2022-08-18 07:21 | MM ---
Reason for Exam: Screening (asymptomatic). Last mammogram was performed 1 year(s) and 1 month(s) ago. Patient History: Menarche at age 15. First Full-Term at age 23. Hysterectomy at age 60. Postmenopausal. Estrogen for 10 years, 5 months. Progesterone for 10 years, 2 months. Risk Values: Betty 5 year model risk: 1.4%. NCI Lifetime model risk: 4.0%. Prior Study Comparison: 05/05/1994 Screening Mammogram, [facility]. 09/25/2013 Bilateral Screening Mammogram, [facility]. 02/11/2015 Bilateral Screening Mammogram, [facility]. 02/18/2016 Bilateral Screening Mammogram, [facility]. 03/17/2017 Bilateral Screening Mammogram, [facility]. 03/29/2018 Bilateral Screening Mammogram, [facility]. 05/16/2019 Bilateral Screening Mammogram, [facility]. 07/08/2020 Bilateral Screening Mammogram, [facility]. 08/11/2021 Bilateral MG 3D screening mammo w/cad, [facility]. 08/14/2021 Left MG 3D work up w/cad LT, [facility]. 02/16/2022 Left MG 3D diag mammo w/cad LT, [facility]. Tissue Density: There are scattered fibroglandular densities. Findings: Analyzed By CAD. There is no suspicious group of microcalcifications or new suspicious mass in either breast. Chronic nodularity within the right breast. Benign-appearing round calcifications within both breasts. Overall Assessment: Benign, BI-RAD 2 Management: Screening Mammogram of both breasts in 1 year. A clinical breast exam by your physician is recommended on an annual basis and results should be correlated with mammographic findings. Electronically signed and approved by: Kavin Espinoza D.O.
== END ==
LOC: WWCWWP 15:02
PROVIDERS: ATTEND Obstetrics & Gynecology
DX: Z12.31 Encounter for screening mammogram for malignant neoplasm of breast (principal); Z78.0 Asymptomatic menopausal state; Z01.419 Encounter for gynecological examination (general) (routine) without abnormal findings; Z87.81 Personal history of (healed) traumatic fracture; Z98.890 Other specified postprocedural states; Z80.8 Family history of malignant neoplasm of other organs or systems; K21.9 Gastro-esophageal reflux disease without esophagitis; I10 Essential (primary) hypertension; E07.9 Disorder of thyroid, unspecified; Z85.9 Personal history of malignant neoplasm, unspecified
CPT/HCPCS: 77063; 77067

== ENCOUNTER → 2023-08-30 | Outpatient (CLI) | payer MEDICARE ==
[2023-08-30 11:24] VITALS: BP 109/72; PULSE 74; RESP 17; TEMP 97.9
--- NOTE | 2023-08-30 12:16 | P.HPOB ---
History of Present Illness H&P Date: 08/30/23 Chief Complaint: The patient is here for her routine gynecologic exam and ma mmogram. This is a 72-year-old G5, P3 with an LMP of 1999. She is status post vaginal hysterectomy with anterior repair for benign reasons. She is without gynecologic complaints. Review of Systems Her weight has been stable. She denies respiratory or cardiac problems. GI: Occasional IBS symptoms which seems to be stress related. Past Medical History Past Medical History: Cancer, GERD/Reflux, Hypertension, Thyroid Disorder Additional Past Medical History / Comment(s): Basal cell skin cancer and thyroid cancer. Meniere disease,IBS, seasonal allergies, osteopenia. Back problems. 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 Vaginal hysterectomy was done for benign reasons. History of Any Multi-Drug Resistant Organisms: None Reported Past Surgical History: Hysterectomy Additional Past Surgical History / Comment(s): THYROIDECTOMY, vaginal hysterectomy with anterior repair 2011, jaw surgery. Eye surgery to prevent glaucoma. Colonoscopy 2021(next after 10yrs) Past Psychological History: No Psychological Hx Reported Smoking Status: Never smoker Past Alcohol Use History: Occasional (0-3 drinks per week.) Past Drug Use History: None Reported Additional History: She has been since 1971 and is not sexually active. She has been retired since 2015. - Past Family History Sister(s) Family Medical History: Cancer Additional Family Medical History / Comment(s): Melanoma skin cancer. Father Family Medical History: Cancer, Diabetes Mellitus Additional Family Medical History / Comment(s): Prostate cancer. Mother Family Medical History: Coronary Artery Disease (CAD), Diabetes Mellitus Medications and Allergies Home Medications Medication Instructions Recorded Confirmed Type Biotin 10,000 mcg PO DAILY 03/29/18 08/30/23 History Calcium Carb/Vitamin D3/Vit K1 1 each PO DAILY 03/29/18 08/30/23 History [Citracal Soft Chew] Cholecalciferol [Vitamin D3] 1,000 tab PO DAILY 03/29/18 08/30/23 History Dicyclomine [Bentyl] 10 mg PO BID 03/29/18 08/30/23 History Fexofenadine HCl [Mala Allergy] 180 mg PO DAILY 03/29/18 08/30/23 History Levothyroxine Sodium [Synthroid] 112 mcg PO DAILY 03/29/18 08/30/23 History Losartan [Cozaar] 50 mg PO DAILY 03/29/18 08/30/23 History Bimatoprost [Lumigan 0.01% Ophth 1 drop BOTH EYES DAILY 08/11/21 08/30/23 H istory Soln] ALPRAZolam [Xanax] 0.5 mg PO DAILY 08/30/23 08/30/23 History Allergies Allergy/AdvReac Type Severity Reaction Status Date / Time No Known Allergies Allergy Unverified 08/30/23 11:21 Exam Vital Signs Temp Pulse Resp BP Pulse Ox 08/30/23 11:22 97.9 F 74 17 109/72 99 Intake and Output 08/29/23 08/30/23 08/30/23 22:59 06:59 14:59 Other: Weight 74.389 kg Height 5 feet 3 inches, weight 164 pounds, BMI 29.1. This is a well-developed well-nourished white female who is alert and oriented times 3 in no acute distress. HEENT: Within normal limits. NECK: Supple without mass or thyromegaly. CHEST AND LUNGS: Clear to auscultation. HEART: Regular rate and rhythm. BREASTS: Are without mass or discharge. AXILLARY EXAM: Negative for adenopathy. BACK: Negative for CVA tenderness. ABDOMEN: Soft, nontender, without palpable masses. PELVIC EXAM: External genitalia appears normal with mild to moderate atrophy. Vagina appears normal with mild to moderate atrophy. Vagina is shortened and narrowed consistent with her previous exams and consistent with her previous vaginal hysterectomy with anterior repair. The distal part of her vagina allows single digit to enter. The outer part of the vagina is slightly wider. There is no evidence of prolapse. Bimanual examination is negative for mass or tenderness. RECTAL EXAM: Rectovaginal exam is negative for mass or tenderness and is negative for occult blood. EXTREMITIES: Nontender. IMPRESSION: 1. 72-year-old menopausal female status post vaginal hysterectomy for benign reasons, with normal gynecologic exam. 2. History of osteopenia. PLAN: 1. Pap smears have been discontinued 2. Self breast awareness was discussed with the patient. We have also discussed symptoms associated with inflammatory breast cancer. 3. Screening mammogram will be done today. 4. PHQ-2 questionaire was given and she scores 0. This is a negative screen for depression. 5. Osteoporosis prevention was discussed. I have stressed the importance of adequate calcium, vitamin D and regular exercise. Recommended amounts of calcium and vitamin D were also discussed. He is scheduled for 10/17/2023. The order slip was given to the patient for this. 6.She was advised to return in one year for her annual well woman exam.
== END ==
LOC: WWCWWP 11:04
PROVIDERS: ATTEND Obstetrics & Gynecology
DX: Z12.31 Encounter for screening mammogram for malignant neoplasm of breast (principal); M85.80 Other specified disorders of bone density and structure, unspecified site; Z78.0 Asymptomatic menopausal state; Z90.710 Acquired absence of both cervix and uterus
CPT/HCPCS: 77063; 77067

== ENCOUNTER → 2023-11-15 | Outpatient (CLI) | payer MEDICARE ==
--- NOTE | 2023-11-18 16:40 | BD ---
EXAMINATION TYPE: Axial Bone Density DATE OF EXAM: 11/15/2023 CLINICAL HISTORY: 73 years old Female. ICD-10 CODE: Z78.0 POSTMENOPAUSAL STATUS Height: 62.2 Weight: 163 FRAX RISK QUESTIONS: 3. Menopause before 45: no 48 RISK FACTORS HISTORY OF: MEDICATIONS: bp meds, reflux, vit d and calcium, xanax, oral radiation for thyroid ca Thyroid Medications: yes for 25 yrs, synthroid EXAM MEASUREMENTS: Bone mineral densitometry was performed using the [employer] System. Bone mineral density as measured about the Lumbar spine is: ----- L1-L4(G/cm2): 1.012 T Score Values are as follows: ----- L1: -2.2 ----- L2: -1.6 ----- L3: -1.3 ----- L4: -0.9 ----- L1-L4: -1.4 Z Score Values are as follows: ----- L1: -0.8 ----- L2: -0.2 ----- L3: 0.1 ----- L4: 0.6 ----- L1-L4: 0.0 Bone mineral density has: Decreased -0.1% since study of: 10.12.2021 Bone mineral density about the R hip (g/cm2): 0.922 Bone mineral density about the L hip (g/cm2): 0.900 T Score values are as follows: -----R Neck: -1.3 -----L Neck: -1.6 -----R Total: -0.7 -----L Total: -0.9 Z Score values are as follows: -----R Neck: 0.3 -----L Neck: 0.0 -----R Total: 0.7 -----L Total: 0.6 Bone mineral density has: Increased 0.8% since study of: 10.12.2021 FRAX%s: The graph provided illustrates a 11.0% chance for a major osteoporotic fx and a 2.0% chance f or the hips probability for fx in 10 years time. IMPRESSION: Osteopenia (T Score between -2.5 and -1). There is slightly increased risk of fracture and the patient may be considered for treatment. Re-Screen 2-5 years. NOTE: T-SCORE=SD OF THE YOUNG ADULT MEAN.
== END | disposition home or self-care (01) ==
LOC: RADBDWWP 12:32
PROVIDERS: ATTEND Family Medicine
DX: Z78.0 Asymptomatic menopausal state
CPT/HCPCS: 77080

== ENCOUNTER → 2024-01-24 | Outpatient (CLI) | payer MEDICARE ==
[2024-01-24 16:24] LABS: ALT 16 U/L (8-44); AST 20 U/L (13-35); Albumin 4.3 g/dL (3.8-4.9); Albumin/Globulin Ratio 1.79 Ratio (1.60-3.17); Alkaline Phosphatase 129 U/L (41-126); BUN/Creat Ratio 18.38 Ratio (12.00-20.00); Blood Urea Nitrogen 14.7 mg/dL (9.0-27.0); Calcium 8.9 mg/dL (8.7-10.3); Carbon Dioxide 27.4 mmol/L (21.6-31.8); Chloride 103 mmol/L (96-109); Chol/HDL Ratio 3.26 Ratio; Globulin 2.4 g/dL (1.6-3.3); Glucose 91 mg/dL (70-110); LDL Cholesterol,Calculated 134.1 mg/dL (0.0-131.0); Potassium 4.1 mmol/L (3.5-5.5); Sodium 141 mmol/L (135-145); Total Bilirubin 0.5 mg/dL (0.3-1.2); Total Protein 6.7 g/dL (6.2-8.2)
[2024-01-24 16:55] LABS: Basophils # (A) 0.06 X 10*3/uL (0.00-0.10); Basophils % (A) 0.7 %; Eosinophils # (A) 0.11 X 10*3/uL (0.04-0.35); Eosinophils % (A) 1.4 %; HCT 41.6 % (37.2-46.3); HGB 12.9 g/dL (12.0-15.0); Lymphocytes # (A) 1.67 X 10*3/uL (0.90-5.00); Lymphocytes % (A) 20.6 %; MCH 28.2 pg (27.0-32.0); Mean Platelet Volume 12.2 FL (9.5-12.2); Monocytes # (A) 0.62 X 10*3/uL (0.20-1.00); Monocytes % (A) 7.6 %; NRBC Per 100 WBC 0 X 10*3/uL (0.00-0.01); Neutrophils # (A) 5.62 X 10*3/uL (1.80-7.70); Neutrophils % (A) 69.3 %; Platelet Count 271 X 10*3/uL (140-440); RBC 4.57 X 10*6/uL (4.10-5.20); RDW 14.3 % (11.5-14.5); WBC 8.11 X 10*3/uL (4.50-10.00)
== END | disposition home or self-care (01) ==
LOC: LABWHC1 09:07
PROVIDERS: ATTEND Family Medicine
DX: Z13.220 Encounter for screening for lipoid disorders (principal); I10 Essential (primary) hypertension; I12.9 Hypertensive chronic kidney disease with stage 1 through stage 4 chronic kidney disease, or unspecified chronic kidney disease; N18.9 Chronic kidney disease, unspecified
CPT/HCPCS: 36415; 80053; 80061; 85025

== ENCOUNTER → 2024-02-07 | Outpatient (CLI) | payer MEDICARE ==
[2024-02-07 15:33] LABS: % Iron Saturation 12.05 (12.00-45.00); Albumin 4.3 g/dL (3.8-4.9); BUN/Creat Ratio 18.38 Ratio (12.00-20.00); Blood Urea Nitrogen 14.7 mg/dL (9.0-27.0); Calcium 9.4 mg/dL (8.7-10.3); Carbon Dioxide 27.8 mmol/L (21.6-31.8); Chloride 103 mmol/L (96-109); Glucose 94 mg/dL (70-110); Iron 54 UG/DL (50-170); Magnesium 2.1 mg/dL (1.5-2.4); Phosphorus 4.2 mg/dL (2.4-5.1); Potassium 4.9 mmol/L (3.5-5.5); Sodium 142 mmol/L (135-145); Total Iron Binding Capacity 448 UG/DL (228-460); Uric Acid 3.2 mg/dL (2.9-7.7)
[2024-02-07 16:41] LABS: HCT 41.9 % (37.2-46.3); HGB 13.1 g/dL (12.0-15.0); MCH 28.2 pg (27.0-32.0); MCHC 31.3 g/dL (32.0-37.0); MCV 90.3 FL (80.0-97.0); Mean Platelet Volume 12.1 FL (9.5-12.2); NRBC Per 100 WBC 0 X 10*3/uL (0.00-0.01); Platelet Count 265 X 10*3/uL (140-440); RBC 4.64 X 10*6/uL (4.10-5.20); RDW 14.3 % (11.5-14.5); WBC 6.83 X 10*3/uL (4.50-10.00)
[2024-02-07 16:50] LABS: Appearance,Urine Clear (Clear); Bilirubin,Urine Negative (Negative); Blood,Urine Negative (Negative); Color,Urine Yellow (Yellow); Ketones,Urine Negative (Negative); Nitrite,Urine Negative (Negative); PH, Urine 5.5; Specific Gravity,Urine 1.008 (1.001-1.030); Urobilinogen,Urine 0.2 E.U./DL
[2024-02-07 17:00] LABS: Bacteria,Urine None Seen (None Seen)
[2024-02-07 17:23] LABS: Microalbumin Creatinine Ratio <33 mg/g Cr (0-30); Urine Creatinine 36.5 mg/dL (28.0-217.0)
== END | disposition home or self-care (01) ==
LOC: LABWHC1 12:00
PROVIDERS: ATTEND Internal Medicine Nephrology
DX: E55.9 Vitamin D deficiency, unspecified (principal); N25.81 Secondary hyperparathyroidism of renal origin; M10.9 Gout, unspecified; N39.0 Urinary tract infection, site not specified; N18.1 Chronic kidney disease, stage 1; D63.1 Anemia in chronic kidney disease; R80.9 Proteinuria, unspecified
CPT/HCPCS: 36415; 80048; 81001; 82040; 82043; 82306; 82570; 83540; 83550; 83735; 83970; 84100; 84550; 85027

== ENCOUNTER → 2024-10-09 | Outpatient (CLI) | payer MEDICARE ==
[2024-10-09 13:12] VITALS: BP 129/80; PULSE 77; RESP 16; TEMP 98.8
--- NOTE | 2024-10-09 13:14 | P.HPOB ---
History of Present Illness H&P Date: 10/09/24 Chief Complaint: The patient is here for her routine gynecologic exam and ma mmogram. This is a 73-year-old G5, P3 with an LMP of 1999. The patient is status post vaginal hysterectomy with anterior repair for benign reasons. She is without gynecologic complaints. Review of Systems The patient has lost 4 pounds over the last year. She denies respiratory, cardiac, or G.I. problems. IBS symptoms are improved after starting probiotics. Past Medical History Past Medical History: Cancer, GERD/Reflux, Hypertension, Thyroid Disorder Additional Past Medical History / Comment(s): Basal cell skin cancer and thyroid cancer. Meniere disease,IBS, seasonal allergies, osteopenia. Back problems. 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 Vaginal hysterectomy was done for benign reasons. History of Any Multi-Drug Resistant Organisms: None Reported Past Surgical History: Hysterectomy Additional Past Surgical History / Comment(s): THYROIDECTOMY, vaginal hysterectomy with anterior repair 2011, jaw surgery. Eye surgery to prevent glaucoma. Colonoscopy 2021(next after 10yrs) Past Psychological History: No Psychological Hx Reported Smoking Status: Never smoker Past Alcohol Use History: Occasional (0-3 drinks per week.) Past Drug Use History: None Reported Additional History: She has been since 1971 and is not sexually active. She has been retired since 2015. - Past Family History Sister(s) Family Medical History: Cancer Additional Family Medical History / Comment(s): Melanoma skin cancer. A niece had breast cancer at age 38. Cancer genetic testing was negative. Father Family Medical History: Cancer, Diabetes Mellitus Additional Family Medical History / Comment(s): Prostate cancer. Mother Family Medical History: Coronary Artery Disease (CAD), Diabetes Mellitus Medications and Allergies Home Medications Medication Instructions Recorded Confirmed Type Calcium Carb/Vitamin D3/Vit K1 1 each PO DAILY 03/29/18 08/30/23 History [Citracal Soft Chew] Cholecalciferol [Vitamin D3] 1,000 tab PO DAILY 03/29/18 08/30/23 History Dicyclomine [Bentyl] 10 mg PO BID 03/29/18 08/30/23 History Fexofenadine HCl [Mala Allergy] 180 mg PO DAILY 03/29/18 08/30/23 History Levothyroxine Sodium [Synthroid] 112 mcg PO DAILY 03/29/18 08/30/23 History Losartan [Cozaar] 50 mg PO DAILY 03/29/18 08/30/23 History Bimatoprost [Lumigan 0.01% Ophth 1 drop BOTH EYES DAILY 08/11/21 08/30/23 History Soln] ALPRAZolam [Xanax] 0.5 mg PO DAILY 08/30/23 08/30/23 History Allergies Allergy/AdvReac Type Severity Reaction Status Date / Time No Known Allergies Allergy Unverified 10/09/24 12:54 Exam Intake and Output 10/08/24 10/09/24 10/09/24 22:59 06:59 14:59 Other: Weight 72.575 kg Blood pressure 129/80, height 5 feet 4 inches, weight 160 pounds, BMI 27.5, temperature 98.8, pulse 77, pulse oximeter 97%. This is a well-developed well-nourished white female who is alert and oriented times 3 in no acute distress. HEENT: Within normal limits. NECK: Supple without mass or thyromegaly. CHEST AND LUNGS: Clear to auscultation. HEART: Regular rate and rhythm. BREASTS: Are without mass or discharge. AXILLARY EXAM: Negative for adenopathy. BACK: Negative for CVA tenderness. ABDOMEN: Soft, nontender, without palpable masses. PELVIC EXAM: External genitalia appears normal with mild to moderate atrophy. Vagina appears normal with moderate atrophy. There is no evidence of prolapse. There is narrowing of the vagina consistent with her previous exams and consistent with her previous vaginal hysterectomy with anterior repair. Distal part of the vagina allows a single digit to enter. Bimanual examination is negative for mass or tenderness. RECTAL EXAM: Rectovaginal exam is negative for mass or tenderness and is negative for occult blood. EXTREMITIES: Nontender. IMPRESSION: 1. 73-year-old menopausal female status post vaginal hysterectomy with anterior repair for benign reasons, with normal gynecologic exam. 2. History of osteopenia. PLAN: 1. Pap smears have been discontinued. 2. Self breast awareness was discussed with the patient. We have also discussed symptoms associated with inflammatory breast cancer. 3. Screening mammogram will be done today. 4. Osteoporosis prevention was discussed. She had a stable bone density test showing osteopenia on 11/15/2023. She will repeat this after approximately 2 to 3 years. 5. She was advised to return in one year for her annual well woman exam.
--- NOTE | 2024-10-09 17:52 | MM ---
Reason for Exam: Screening (asymptomatic). Last mammogram was performed 1 year(s) and 1 month(s) ago. Patient History: Menarche at age 15. First Full-Term at age 23. Hysterectomy at age 60. Postmenopausal. Estrogen for 10 years, 5 months. Progesterone for 10 years, 2 months. Risk Values: Betty 5 year model risk: 1.4%. NCI Lifetime model risk: 3.6%. Prior Study Comparison: 02/16/2022 Left MG 3D diag mammo w/cad LT, [facility]. 08/17/2022 Bilateral MG 3D screening mammo w/cad, [facility]. 08/30/2023 Bilateral MG 3D screening mammo w/cad, [facility]. Tissue Density: There are scattered areas of fibroglandular density. Findings: Analyzed By CAD. Chronic nodularity on the right. There is no suspicious group of microcalcifications or new suspicious mass in either breast. Overall Assessment: Benign, BI-RAD 2 Management: Screening Mammogram of both breasts in 1 year. . Patient should continue monthly self-breast exams. A clinical breast exam by your physician is recommended on an annual basis. This exam should not preclude additional follow-up of suspicious palpable abnormalities. Note on Betty scores and lifetime risk: 1. A Betty score greater than 3% is considered moderate risk. If this is the case, consider specialist referral to assess eligibility for a risk reducing agent. 2. If overall lifetime risk for the development of breast cancer is 20% or higher, the patient may qualify for future screening with alternating mammogram and breast MRI. [facility], , 10/09/2024 5:48 PM. Electronically signed and approved by: Rajat Bhagat M.D. Radiologist
== END ==
LOC: WWCWWP 12:17
PROVIDERS: ATTEND Obstetrics & Gynecology
DX: Z01.419 Encounter for gynecological examination (general) (routine) without abnormal findings (principal); Z12.31 Encounter for screening mammogram for malignant neoplasm of breast; Z90.710 Acquired absence of both cervix and uterus; Z78.0 Asymptomatic menopausal state; Z87.39 Personal history of other diseases of the musculoskeletal system and connective tissue
CPT/HCPCS: 77063; 77067